=== PATIENT | female | born 1970 | race African-American/Black ===

== ENCOUNTER 2020-11-14 22:33 | Emergency (ER) | payer MEDICAID ==
[~2020-11-14] VITALS: Ht 167.6 cm; Wt 102.1 kg
[2020-11-14] MEDS ORDERED: DOXYCYCLINE HYCLATE 100 MG TABLET PO ONE (23:30)
[2020-11-14] MEDS ORDERED: CEFTRIAXONE 1 G VIAL IM ONE (23:30)
[2020-11-14] MEDS ORDERED: predniSONE 20 MG TABLET PO ONE (23:30)
[2020-11-14] MEDS ORDERED: SULF1TAB48 PO (23:36)
[2020-11-14] MEDS ORDERED: CEPH500T PO (23:36)
[2020-11-14] MEDS ORDERED: HYDR-3980 PO (23:36)
[2020-11-14 23:43] LABS: HEMATOCRIT 37.4 % (31.2-41.9); MEAN CORPUSCULAR HEMOGLOBIN 26.4 uug (24.7-32.8); MEAN CORPUSCULAR VOLUME 82.4 fL (75.5-95.3); PLATELET COUNT (AUTO) 404 K/uL (179-408)
[2020-11-14] MEDS ORDERED: SULFAMETH/TRIMETH 800/160 MG TABLET ONE (23:43)
[2020-11-14] MEDS ORDERED: CEFTRIAXONE 1 G VIAL ONE (23:43)
[2020-11-14] MEDS ORDERED: predniSONE 20 MG TABLET ONE (23:43)
[2020-11-14] MEDS ORDERED: SULFAMETH/TRIMETH 800/160 MG TABLET PO ONE (23:45)
[2020-11-14] MEDS ORDERED: LIDOCAINE HCL 1% 20 ML VIAL ONE (23:45)
[2020-11-14 23:54] LABS: POTASSIUM 3.7 mmol/L (3.5-5.1)
[2020-11-15 00:05] LABS: BILIRUBIN,TOTAL 0.6 mg/dL (0.2-1.0); TOTAL PROTEIN, SERUM 9.1 g/dL (6.4-8.2)
[2020-11-15 00:09] LABS: *RHEUMATOID FACTOR SCREEN NEGATIVE (NEGATIVE)
--- NOTE | 2020-11-15 00:22 | NUR ---
Patient discharged to home in stable condition. Written and verbal after care instructions given. Patient verbalizes understanding of instructions. Stressed follow up or return to ER for worsening s/s.
[2020-11-15 00:23] VITALS: BP 147/97
== END 2020-11-15 00:23 | disposition home or self-care (01) ==
LOC: ER 22:43
DX: M32.9 Systemic lupus erythematosus, unspecified (principal); Z86.73 Personal history of transient ischemic attack (TIA), and cerebral infarction without residual deficits; R03.0 Elevated blood-pressure reading, without diagnosis of hypertension
CPT/HCPCS: 36415; 80053; 85025; 85610; 85651; 86430; 96372; 99283; J0696; J3490; J7512; A4663

== ENCOUNTER 2020-11-19 12:08 | Emergency (ER) | payer MEDICAID ==
[~2020-11-19] VITALS: Ht 167.6 cm; Wt 102.1 kg
[~2020-11-19 12:08] MED LIST: CEPH500T PO; HYDR-3980 PO; SULF1TAB48 PO
--- NOTE | 2020-11-19 12:39 | NUR ---
chaperoned examining the pt.
[2020-11-19] MEDS ORDERED: PRED50TA PO (12:48)
== END 2020-11-19 12:55 | disposition home or self-care (01) ==
LOC: ER 12:08
DX: R22.42 Localized swelling, mass and lump, left lower limb (principal); N63.0 Unspecified lump in unspecified breast; Z86.73 Personal history of transient ischemic attack (TIA), and cerebral infarction without residual deficits; E66.9 Obesity, unspecified; Z68.36 Body mass index [BMI] 36.0-36.9, adult
CPT/HCPCS: A4663

== ENCOUNTER 2020-12-08 20:33 | Emergency (ER) | payer MEDICAID ==
[~2020-12-08] VITALS: Ht 167.6 cm; Wt 102.1 kg
[~2020-12-08 20:33] MED LIST changes: +PRED50TA PO
--- NOTE | 2020-12-08 21:51 | NUR ---
Dr. Reynolds at bedside for mse, I was present as a agricultural commodities inspector for breast exam.
[2020-12-08] MEDS ORDERED: CLIN300C12 PO (22:02)
[2020-12-08] MEDS ORDERED: HYDR-3980 PO (22:02)
[2020-12-08 22:10] VITALS: BP 134/84
--- NOTE | 2020-12-08 22:10 | NUR ---
Patient discharged to home in stable condition. Written and verbal after care instructions given. Patient verbalizes understanding of instructions. Stressed follow up or return to ER for worsening s/s. Patient ambulates with steady gait, V/S stable, received paper Rx, and left with all personal belongings.
== END 2020-12-08 22:10 | disposition home or self-care (01) ==
LOC: ER 20:33
DX: N63.21 Unspecified lump in the left breast, upper outer quadrant (principal); L95.9 Vasculitis limited to the skin, unspecified; Z86.73 Personal history of transient ischemic attack (TIA), and cerebral infarction without residual deficits
CPT/HCPCS: A4663

== ENCOUNTER 2020-12-12 19:50 | Emergency (ER) | payer MEDICAID ==
[~2020-12-12] VITALS: Ht 167.6 cm; Wt 102.1 kg
[~2020-12-12 19:50] MED LIST changes: +CLIN300C12 PO
[2020-12-12] MEDS ORDERED: HYDROCODONE/APAP 10-325 MG TABLET PO ONE (21:00)
[2020-12-12] MEDS ORDERED: KETOROLAC TROMETHAMINE 60 MG INJ IM ONE ×2 (21:00→21:13)
--- NOTE | 2020-12-12 21:00 | NUR ---
Dr levin into eval patient with Brigette OTERO as a manufacturing development engineer.
--- NOTE | 2020-12-12 21:00 | NUR ---
Assisted Dr. Lindsey as senior fund accountant for medical exam.
[2020-12-12] MEDS ORDERED: HYDROCODONE/APAP 10-325 MG TABLET ONE (21:13)
[2020-12-12 21:43] VITALS: BP 150/90
== END 2020-12-12 21:15 | disposition home or self-care (01) ==
LOC: ER 19:52
DX: N63.0 Unspecified lump in unspecified breast (principal); R22.2 Localized swelling, mass and lump, trunk; Z86.73 Personal history of transient ischemic attack (TIA), and cerebral infarction without residual deficits; M32.9 Systemic lupus erythematosus, unspecified; Z79.52 Long term (current) use of systemic steroids; Z79.899 Other long term (current) drug therapy
CPT/HCPCS: 96372; 99283; J1885; A4663

== ENCOUNTER 2021-01-01 12:23 | Emergency (ER) | payer MEDICAID ==
[~2021-01-01] VITALS: Ht 167.6 cm; Wt 102.1 kg
--- NOTE | 2021-01-01 12:50 | NUR ---
Female hostess accompanied female patient for (Dr Miller).
[2021-01-01] MEDS ORDERED: MORPHINE SULFATE 4 MG/1 ML DISP.SYRIN IM ONE (13:00)
[2021-01-01] MEDS ORDERED: MORPHINE SULFATE 4 MG/1 ML DISP.SYRIN ONE (13:13)
--- NOTE | 2021-01-01 14:04 | NUR ---
Female president & ceo accompanied female patient for ([employer]).
[2021-01-01] MEDS ORDERED: HYDR-4209 PO (15:45)
[2021-01-01 15:52] VITALS: BP 149/92
== END 2021-01-01 15:53 | disposition home or self-care (01) ==
LOC: ER 12:23
DX: N63.21 Unspecified lump in the left breast, upper outer quadrant (principal); Z86.73 Personal history of transient ischemic attack (TIA), and cerebral infarction without residual deficits; M32.9 Systemic lupus erythematosus, unspecified
CPT/HCPCS: 76642; 96372; 99284; J2270; A4663

== ENCOUNTER 2021-02-04 20:12 | Emergency (ER) | payer MEDICAID ==
[~2021-02-04] VITALS: Ht 167.6 cm; Wt 99.8 kg
[~2021-02-04 20:12] MED LIST changes: +HYDR-4209 PO
--- NOTE | 2021-02-04 22:05 | NUR ---
Dr. Rosales at bedside for MSE.
[2021-02-04] MEDS ORDERED: OXYCODONE/APAP 5-325 MG TABLET PO ONE (22:15)
[2021-02-04] MEDS ORDERED: OXYC-133 PO (22:21)
[2021-02-04] MEDS ORDERED: OXYCODONE/APAP 5-325 MG TABLET ONE (22:22)
--- NOTE | 2021-02-04 22:27 | NUR ---
Patient discharged to home in stable condition WITH FAMILY TAKING PATIENT HOME. Written and verbal after care instructions given. Patient verbalizes understanding of instructions. Stressed follow up or return to ER for worsening s/s.
[2021-02-04 22:28] VITALS: BP 159/85
== END 2021-02-04 22:32 | disposition home or self-care (01) ==
LOC: ER 21:21
DX: N64.4 Mastodynia (principal); N63.20 Unspecified lump in the left breast, unspecified quadrant; M32.9 Systemic lupus erythematosus, unspecified; Z86.73 Personal history of transient ischemic attack (TIA), and cerebral infarction without residual deficits; Z98.890 Other specified postprocedural states; R03.0 Elevated blood-pressure reading, without diagnosis of hypertension
CPT/HCPCS: A4663

== ENCOUNTER 2021-05-29 22:19 | Emergency (ER) | payer OTHER ==
[~2021-05-29] VITALS: Ht 165.1 cm; Wt 97.5 kg
[~2021-05-29 22:19] MED LIST changes: +OXYC-133 PO
--- NOTE | 2021-05-30 00:05 | NUR ---
Patient c/o worsening chronic left breast pain with bilateral flank pain.
--- NOTE | 2021-05-30 00:10 | NUR ---
Dr. Miller on bedside for MSE.
[2021-05-30] MEDS ORDERED: MORPHINE SULFATE 4 MG/1 ML DISP.SYRIN IM ONE (00:30)
[2021-05-30] MEDS ORDERED: MORPHINE SULFATE 2 MG/1 ML DISP.SYRIN ONE (00:36)
[2021-05-30] MEDS ORDERED: MORPHINE SULFATE 4 MG/1 ML DISP.SYRIN ONE ×2 (00:36→03:31)
[2021-05-30 00:51] LABS: MEAN CORPUSCULAR VOLUME 81.7 fL (75.5-95.3)
[2021-05-30 00:56] LABS: CREATININE 0.9 mg/dL (0.6-1.3)
[2021-05-30 01:02] LABS: BILIRUBIN,DIRECT 0.1 mg/dL (0.0-0.2); BILIRUBIN,TOTAL 0.5 mg/dL (0.2-1.0); TOTAL PROTEIN, SERUM 8.8 g/dL (6.4-8.2)
[2021-05-30 01:17] LABS: MEAN CORPUSCULAR HEMOGLOBIN 27.7 uug (24.7-32.8); PLATELET COUNT (AUTO) 377 K/uL (179-408)
--- NOTE | 2021-05-30 02:03 | NUR ---
Dr. Miller at bedside.
[2021-05-30] MEDS ORDERED: MORPHINE SULFATE 4 MG/1 ML DISP.SYRIN IV ONE (03:15)
[2021-05-30] MEDS ORDERED: OXYC-128 PO (03:15)
[2021-05-30 03:38] VITALS: BP 150/62
== END 2021-05-30 03:39 | disposition home or self-care (01) ==
LOC: ER 22:26
DX: N63.20 Unspecified lump in the left breast, unspecified quadrant (principal); R10.30 Lower abdominal pain, unspecified; Z98.890 Other specified postprocedural states; Z86.73 Personal history of transient ischemic attack (TIA), and cerebral infarction without residual deficits; D72.819 Decreased white blood cell count, unspecified; R03.0 Elevated blood-pressure reading, without diagnosis of hypertension
CPT/HCPCS: 36415; 76642; 80048; 80076; 84702; 85025; 96372; 96374; 99284; J2270 ×3

== ENCOUNTER 2021-05-31 20:36 | Emergency (ER) | payer OTHER ==
[~2021-05-31] VITALS: Ht 165.1 cm; Wt 97.5 kg
[~2021-05-31 20:36] MED LIST changes: +OXYC-128 PO
[2021-05-31] MEDS ORDERED: ONDANSETRON 4 MG/2 ML VIAL IV ONE (22:00)
[2021-05-31] MEDS ORDERED: MORPHINE SULFATE 4 MG/1 ML DISP.SYRIN IV ONE (22:00)
[2021-05-31] MEDS ORDERED: SWABABLE VALVE TRANSFER SET EA MC ONE (22:20)
[2021-05-31] MEDS ORDERED: IV NORMAL SALINE 250 ML IV ONE (22:21)
[2021-05-31] MEDS ORDERED: IOHEXOL 300MG/ML 100 ML INFUS..BTL ONE (22:21)
[2021-05-31 22:36] LABS: POTASSIUM 3.9 mmol/L (3.5-5.1)
[2021-05-31 22:40] LABS: HEMATOCRIT 35.4 % (31.2-41.9); MEAN CORPUSCULAR HEMOGLOBIN 26.7 uug (24.7-32.8); MEAN CORPUSCULAR VOLUME 81.9 fL (75.5-95.3); PLATELET COUNT (AUTO) 374 K/uL (179-408)
[2021-05-31 22:42] LABS: BILIRUBIN,DIRECT 0.1 mg/dL (0.0-0.2); BILIRUBIN,TOTAL 0.6 mg/dL (0.2-1.0); TOTAL PROTEIN, SERUM 8.9 g/dL (6.4-8.2)
[2021-05-31 23:08] LABS: *BILIRUBIN,URIN NEGATIVE (NEGATIVE); *BLOOD, URINE NEGATIVE (NEGATIVE); *CLARITY,URINE CLEAR (CLEAR); *COLOR,URINE YELLOW (YELLOW); *KETONES,URINE NEGATIVE (NEGATIVE); *UROBILINOGEN,URINE 0.2 E.U./dl (NORMAL); LEUKOCYTE ESTERASE ,URINE NEGATIVE (NEGATIVE); NITRITE, URINE NEGATIVE (NEGATIVE); UGLUCOSE NEGATIVE (NEGATIVE)
[2021-05-31] MEDS ORDERED: ONDANSETRON 4 MG/2 ML VIAL ONE (23:12)
[2021-05-31] MEDS ORDERED: MORPHINE SULFATE 4 MG/1 ML DISP.SYRIN ONE (23:12)
[2021-05-31] MEDS ORDERED: MORPHINE SULFATE 4 MG/1 ML DISP.SYRIN IM ONE (23:15)
[2021-05-31] MEDS ORDERED: ONDANSETRON 4 MG/2 ML VIAL IM ONE (23:15)
[2021-06-01] MEDS ORDERED: OXYCODONE/APAP 5-325 MG TABLET PO ONE (01:30)
[2021-06-01] MEDS ORDERED: OXYCODONE/APAP 5-325 MG TABLET ONE (01:38)
[2021-06-01 01:44] VITALS: BP 140/75
== END 2021-06-01 01:44 | disposition home or self-care (01) ==
LOC: ER 20:39
DX: R10.32 Left lower quadrant pain (principal); R10.31 Right lower quadrant pain; Z86.73 Personal history of transient ischemic attack (TIA), and cerebral infarction without residual deficits; M32.9 Systemic lupus erythematosus, unspecified; N64.4 Mastodynia; R03.0 Elevated blood-pressure reading, without diagnosis of hypertension; R91.8 Other nonspecific abnormal finding of lung field
CPT/HCPCS: 36415; 74176; 80048; 80076; 81003; 83690; 85025; 96372 ×2; 99284; J2270; J2405; A4663; J7030; J7050; Q9967